=== PATIENT | female | born 1930 | race Caucasian/White ===

== ENCOUNTER 2021-05-17 08:46 | Outpatient (CLI) | payer MEDICARE ==
[2021-05-18 10:50] LABS: SARS-CoV-2 PCR by NAA Not Detected (NotDetected)
== END 2021-05-17 08:47 | disposition home or self-care (01) ==
LOC: CSHLAB 08:46
PROVIDERS: ATTEND Internal Medicine
DX: Z20.822 Contact with and (suspected) exposure to COVID-19 (principal)
CPT/HCPCS: U0003; U0005

== ENCOUNTER 2021-05-18 11:30 | Outpatient (CLI) | payer MEDICARE | END 2021-05-18 11:31 | disposition home or self-care (01) | LOC: CSHCP 11:30 → MERGE 11:30 → CSHCP 11:31 | PROVIDERS: ATTEND Physical Medicine & Rehabilitation | DX: R91.8 Other nonspecific abnormal finding of lung field (principal) | CPT/HCPCS: 94060; 94726; 94729; 94760 ==